=== PATIENT | female | born 1995 | race Caucasian/White ===

== ENCOUNTER 2017-05-04 21:06 | Emergency (ER) | payer OTHER ==
[2017-05-05 02:01] LABS: HEMOGLOBIN 13.3 gm/dl (12.3-15.3); RED BLOOD COUNT 4.36 M/UL (4.00-5.10); WHITE BLOOD COUNT 8.9 K/UL (4.5-11.0)
[2017-05-05 02:28] LABS: BUN/CREATININE RATIO 17 (0-10)
== END 2017-05-05 05:18 | disposition home or self-care (01) ==
LOC: ER1 21:06
PROVIDERS: Physician Assistant
DX: R07.89 Other chest pain (principal); R09.1 Pleurisy; Z86.73 Personal history of transient ischemic attack (TIA), and cerebral infarction without residual deficits
CPT/HCPCS: 36415; 71010; 80053; 83735; 84439; 84443; 84703; 85025; 85379; 93005; 99284

== ENCOUNTER 2021-06-09 17:31 | Emergency (ER) | payer OTHER ==
[~2021-06-09 17:31] MED LIST: CYCLOBENZAPRINE10 MG PO; IBU400 MG PO; ZOFRAN ODT4 MG PO
== END 2021-06-09 21:08 | disposition left against medical advice (07) ==
LOC: ER1 17:31
DX: R10.30 Lower abdominal pain, unspecified (principal)

== ENCOUNTER → 2022-01-13 | Outpatient (CLI) | payer OTHER | LOC: GENOP 18:50 | DX: O99.891 Other specified diseases and conditions complicating pregnancy (principal); M54.50 Low back pain, unspecified; R10.30 Lower abdominal pain, unspecified; Z3A.37 37 weeks gestation of pregnancy | CPT/HCPCS: 81001; G0463 ==

== ENCOUNTER 2022-02-26 19:08 | Emergency (ER) | payer OTHER ==
[2022-02-26] MEDS ORDERED: PREDNISONE20 MG PO (20:29)
[2022-02-28] MEDS ORDERED: KENALOG CREAM 080 GM TOP (01:02)
[2022-02-28] MEDS ORDERED: ENDOCET 5-3251 EACH PO (01:02)
[2022-02-28] MEDS ORDERED: HYDROCORTISON28.4 G9 TOP (01:02)
== END 2022-02-26 20:37 | disposition home or self-care (01) ==
LOC: ER1 19:08
DX: L50.9 Urticaria, unspecified (principal); Z88.1 Allergy status to other antibiotic agents
CPT/HCPCS: 96365; 96375; 99283; J1200; J2930